=== PATIENT | female | born 1985 | race Caucasian/White ===

== ENCOUNTER 2017-10-23 16:13 | Emergency (ER) | payer OTHER, MEDICAID ==
[~2017-10-23] VITALS: Ht 165.1 cm; Wt 61.2 kg
[~2017-10-23 16:13] MED LIST: ALBUTEROL2.5 MG/0.5 IH; AUGMENTIN 875875 MG PO; BACTRIM DS TAB1 EACH PO; CIPRO250 M1 PO; DICLOFENAC SODI75 MG PO; DOXYCYCLINE 10100 M1 PO; HYDROCODONE-AP1 EAC6 PO; MOTION RELIEF25 MG PO; NOHOMEMEDICATIONS; PHENERGAN 25 MG25 MG PO; PREDNISONE 10 M10 MG PO; ZOFRAN ODT4 MG PO; ZOFRAN4 MG PO; ZPAK PO
[2017-10-23 16:37] LABS: URINE BILIRUBIN NEGATIVE (Negative); URINE BLOOD 1+ (Negative); URINE CLARITY CLEAR; URINE COLOR YELLOW; URINE GLUCOSE-RANDOM NEGATIVE (Negative); URINE KETONES NEGATIVE (Negative); URINE LEUKOCYTES-REFLEX 2+ (Negative); URINE NITRITE-REFLEX NEGATIVE (Negative); URINE PROTEIN NEGATIVE (Negative); URINE SPECIFIC GRAVITY <= 1.005 (1.005-1.030); URINE UROBILINOGEN 0.2 E.U./dl (0.2-1.0)
[2017-10-23 16:51] LABS: CASTS None Seen /LPF (None Seen); MUCUS None Seen strn/LPF (None Seen); SQUAMOUS >10 Many /LPF (0-3); URINE WBC-REFLEX 6-15 Few /HPF (0-5)
[2017-10-23 16:52] LABS: CRYSTALS None Seen /LPF (None Seen); URINE RBC 0-2 Rare /HPF (0-2)
[2017-10-23] MEDS ORDERED: MACROBID 100 M100 M1 PO (17:25)
[2017-10-23 17:33] VITALS: BP 117/65
== END 2017-10-23 17:34 | disposition home or self-care (01) ==
LOC: M.ERS 16:13
PROVIDERS: Nurse Practitioner Family
DX: N39.0 Urinary tract infection, site not specified (principal); D17.21 Benign lipomatous neoplasm of skin and subcutaneous tissue of right arm

== ENCOUNTER 2018-07-01 22:09 | Emergency (ER) | payer OTHER ==
[~2018-07-01] VITALS: Ht 165.1 cm; Wt 56.7 kg
[~2018-07-01 22:09] MED LIST changes: +MACROBID 100 M100 M1 PO
[2018-07-01 22:38] LABS: URINE BILIRUBIN NEGATIVE (Negative); URINE BLOOD NEGATIVE (Negative); URINE CLARITY CLEAR; URINE COLOR YELLOW; URINE GLUCOSE-RANDOM NEGATIVE (Negative); URINE KETONES NEGATIVE (Negative); URINE LEUKOCYTES-REFLEX NEGATIVE (Negative); URINE NITRITE-REFLEX NEGATIVE (Negative); URINE PROTEIN NEGATIVE (Negative); URINE SPECIFIC GRAVITY <= 1.005 (1.005-1.030); URINE UROBILINOGEN 0.2 E.U./dl (0.2-1.0)
[2018-07-01 23:08] VITALS: BP 117/47
== END 2018-07-01 23:10 | disposition home or self-care (01) ==
LOC: M.ERS 22:09
PROVIDERS: Physician Assistant
DX: Z20.2 Contact with and (suspected) exposure to infections with a predominantly sexual mode of transmission (principal); N89.8 Other specified noninflammatory disorders of vagina; F17.200 Nicotine dependence, unspecified, uncomplicated

== ENCOUNTER 2019-09-22 10:24 | Emergency (ER) | payer OTHER, MEDICAID ==
[~2019-09-22] VITALS: Ht 165.1 cm; Wt 54.0 kg
[2019-09-22 11:00] LABS: URINE BILIRUBIN NEGATIVE (Negative); URINE BLOOD NEGATIVE (Negative); URINE CLARITY CLEAR; URINE COLOR YELLOW; URINE GLUCOSE-RANDOM NEGATIVE (Negative); URINE KETONES NEGATIVE (Negative); URINE LEUKOCYTES-REFLEX NEGATIVE (Negative); URINE NITRITE-REFLEX NEGATIVE (Negative); URINE PROTEIN NEGATIVE (Negative); URINE SPECIFIC GRAVITY <= 1.005 (1.005-1.030); URINE UROBILINOGEN 0.2 E.U./dl (0.2-1.0)
[2019-09-22 11:30] VITALS: BP 113/46
== END 2019-09-22 11:31 | disposition home or self-care (01) ==
LOC: M.ERS 10:24
PROVIDERS: Nurse Practitioner Family
DX: N89.8 Other specified noninflammatory disorders of vagina (principal); Z98.51 Tubal ligation status

== ENCOUNTER 2019-11-17 09:24 | Emergency (ER) | payer OTHER, MEDICAID ==
[~2019-11-17] VITALS: Ht 165.1 cm; Wt 52.6 kg
[2019-11-17 10:22] LABS: URINE BILIRUBIN NEGATIVE (Negative); URINE BLOOD NEGATIVE (Negative); URINE CLARITY CLEAR; URINE COLOR YELLOW; URINE GLUCOSE-RANDOM NEGATIVE (Negative); URINE KETONES NEGATIVE (Negative); URINE LEUKOCYTES-REFLEX NEGATIVE (Negative); URINE NITRITE-REFLEX NEGATIVE (Negative); URINE PROTEIN NEGATIVE (Negative); URINE UROBILINOGEN 0.2 E.U./dl (0.2-1.0)
[2019-11-17 11:50] VITALS: BP 122/62
== END 2019-11-17 11:51 | disposition home or self-care (01) ==
LOC: M.ERS 09:24
PROVIDERS: Nurse Practitioner Family
DX: R10.2 Pelvic and perineal pain (principal); Z20.2 Contact with and (suspected) exposure to infections with a predominantly sexual mode of transmission

== ENCOUNTER 2020-01-10 | Emergency (ER) | payer OTHER, MEDICAID ==
[~2020-01-10] VITALS: Ht 165.1 cm; Wt 59.0 kg
[2020-01-10 00:35] LABS: URINE BILIRUBIN NEGATIVE (Negative); URINE BLOOD NEGATIVE (Negative); URINE CLARITY CLEAR; URINE COLOR STRAW; URINE GLUCOSE-RANDOM NEGATIVE (Negative); URINE KETONES NEGATIVE (Negative); URINE LEUKOCYTES-REFLEX NEGATIVE (Negative); URINE NITRITE-REFLEX NEGATIVE (Negative); URINE PROTEIN NEGATIVE (Negative); URINE SPECIFIC GRAVITY 1.015 (1.005-1.030); URINE UROBILINOGEN 0.2 E.U./dl (0.2-1.0)
[2020-01-10] MEDS ORDERED: CLEOCIN100 MG VAG (01:01)
[2020-01-10 01:28] VITALS: BP 96/43
== END 2020-01-10 01:29 | disposition home or self-care (01) ==
LOC: M.ERS
PROVIDERS: Emergency Medicine
DX: N76.0 Acute vaginitis (principal); B96.89 Other specified bacterial agents as the cause of diseases classified elsewhere; Z20.2 Contact with and (suspected) exposure to infections with a predominantly sexual mode of transmission; Z98.51 Tubal ligation status

== ENCOUNTER 2020-01-22 20:22 | Emergency (ER) | payer OTHER, MEDICAID ==
[~2020-01-22] VITALS: Ht 165.1 cm; Wt 59.0 kg
[~2020-01-22 20:22] MED LIST changes: +CLEOCIN100 MG VAG
[2020-01-22] MEDS ORDERED: ALBUTEROL2.5 MG/31 INH (21:14)
[2020-01-22 21:24] VITALS: BP 130/70
== END 2020-01-22 21:25 | disposition home or self-care (01) ==
LOC: M.ERS 20:22
DX: J06.9 Acute upper respiratory infection, unspecified (principal); Z20.828 Contact with and (suspected) exposure to other viral communicable diseases; Z98.51 Tubal ligation status; Z90.49 Acquired absence of other specified parts of digestive tract

== ENCOUNTER 2020-06-07 08:02 | Emergency (ER) | payer OTHER, MEDICAID ==
[~2020-06-07] VITALS: Ht 160 cm; Wt 56.7 kg
[~2020-06-07 08:02] MED LIST changes: +ALBUTEROL2.5 MG/31 INH
[2020-06-07 08:37] LABS: URINE BILIRUBIN NEGATIVE (Negative); URINE BLOOD NEGATIVE (Negative); URINE CLARITY CLEAR; URINE COLOR YELLOW; URINE GLUCOSE-RANDOM TRACE (Negative); URINE KETONES NEGATIVE (Negative); URINE LEUKOCYTES-REFLEX TRACE (Negative); URINE NITRITE-REFLEX NEGATIVE (Negative); URINE PROTEIN NEGATIVE (Negative); URINE SPECIFIC GRAVITY 1.025 (1.005-1.030)
[2020-06-07 08:39] LABS: ABSOLUTE EOSINOPHILS 0.1 thou/uL (0.0-0.7); ABSOLUTE LYMPHOCYTES 1.6 thou/uL (0.8-5.3); ABSOLUTE MONOCYTES 0.5 thou/uL (0.0-1.2); ABSOLUTE NEUTROPHILS 4.1 thou/uL (1.6-8.1); BASOPHILS 0.6 %; EOSINOPHILS 1.2 %; HEMATOCRIT 36.1 % (37.0-47.0); HEMOGLOBIN 12.1 gm/dL (12.0-15.0); LYMPHOCYTES 24.9 %; MCH 32.8 pg (26.0-34.0); MCHC 33.4 g/dL (28.0-37.0); MONOCYTES 8.3 %; MPV 8.3 fl. (7.2-11.1); NUCLEATED RBCS 0 /100WBC; PLATELET COUNT* 304 thou/uL (150-400); RBC 3.69 mil/uL (4.20-5.00); WBC 6.3 thou/uL (4.0-11.0)
[2020-06-07 08:44] LABS: BACTERIA-REFLEX 1-9 Few /HPF (None Seen); CASTS None Seen /LPF (None Seen); CRYSTALS None Seen /LPF (None Seen); MUCUS 4-6 Moderate strn/LPF (None Seen); SQUAMOUS 4-10 Moderate /LPF (0-3); URINE RBC 0-2 Rare /HPF (0-2); URINE WBC-REFLEX 0-5 Rare /HPF (0-5)
[2020-06-07 08:48] LABS: CALCIUM 8.5 mg/dL (8.5-10.1); CREATININE 0.6 mg/dL (0.6-1.3)
[2020-06-07 08:51] LABS: APTT 24.7 Seconds (25.0-31.3); PROTIME 10.9 Seconds (9.20-11.50)
[2020-06-07 08:59] LABS: ALBUMIN 3.7 g/dL (3.4-5.0); TOTAL BILIRUBIN 0.9 mg/dL (<0.1-1.0); TOTAL PROTEIN 7.3 g/dL (6.4-8.2)
[2020-06-07 09:00] LABS: POTASSIUM 2.9 mmol/L (3.5-5.1)
[2020-06-07 09:20] VITALS: BP 111/62
== END 2020-06-07 09:27 | disposition home or self-care (01) ==
LOC: M.ERS 08:02
PROVIDERS: Family Medicine
DX: R53.1 Weakness (principal); E87.6 Hypokalemia; Z20.828 Contact with and (suspected) exposure to other viral communicable diseases; Z90.49 Acquired absence of other specified parts of digestive tract; Z98.51 Tubal ligation status